=== PATIENT | male | born 1995 | race Caucasian/White ===

== ENCOUNTER 2020-08-08 11:19 | Emergency (ER) | payer OTHER ==
[~2020-08-08] VITALS: Ht 185.4 cm; Wt 93.9 kg
[2020-08-08 11:20] VITALS: BP 162/102
[2020-08-08] MEDS ORDERED: ACET-897 PO (11:25)
[2020-08-08] MEDS ORDERED: CYCL-707 PO (13:11)
[2020-08-08] MEDS ORDERED: NAPR-837 PO (13:11)
--- NOTE | 2020-08-08 13:18 | REP ---
INDICATION: minor injury, radiating pain right arm. COMPARISON: None. TECHNIQUE: Seven views of cervical spine performed. FINDINGS: No compression fracture is seen. There is no prevertebral soft tissue swelling. There is mild reversal of the normal cervical lordosis which may indicate spasm. Disc spaces are well preserved. There is mild curvature at the cervicothoracic junction convex to the left. The oblique views are unremarkable. IMPRESSION: No fracture or malalignment. Mild reversal of the normal cervical lordosis and mild curvature toward the left may indicate muscle spasm. If there is continued clinical concern for a cervical spine fracture a CT would be recommended to rule out occult fracture. <Electronically signed by Sarthak Flowers > 08/08/20 [id number]
== END 2020-08-08 13:58 | disposition home or self-care (01) ==
LOC: M ED 11:19
DX: M54.12 Radiculopathy, cervical region (principal); F17.200 Nicotine dependence, unspecified, uncomplicated